=== PATIENT | male | born 1995 | race Caucasian/White ===

== ENCOUNTER 2021-03-14 14:03 | Emergency (ER) | payer OTHER, SELFPAY ==
[2021-03-14 14:35] VITALS: BP 167/88; PULSE 56; RESP 18; TEMP 36.8; O2SAT 100; BMI 33.3
[2021-03-14 16:40] VITALS: PULSE 72; RESP 16; O2SAT 99
--- NOTE | 2021-03-14 16:48 | ED.WOUNDLAC ---
HPI - Wound/Laceration General Chief Complaint: Wound/Laceration Stated Complaint: Hit Head, Laceration Time Seen by Provider: 03/14/21 16:30 Source: patient Mode of arrival: Ambulatory History of Present Illness HPI narrative: 25-year-old otherwise healthy individual who is here for evaluation of a cut above his left eye. He states that he hit himself with the claw portion of a hammer while at work. No other injuries reported from the event. Related Data Home Medications Medication Instructions Recorded Confirmed No Known Home Medications 03/14/21 03/14/21 Allergies Allergy/AdvReac Type Severity Reaction Status Date / Time No Known Drug Allergies Allergy Verified 03/14/21 14:38 Review of Systems Constitutional Comments: No headache Eyes Comments: No vision changes Integumentary/Breasts Comments: Cut above left eye Hematologic/Lymphatic On Anticoagulants: No Patient History Medical History Healthy adult Social History Smoking Status: Never smoker Smoking Status: Never smoker alcohol intake frequency: other Substance Use Type: does not use Exam Initial Vital Signs Initial Vital Signs: Vital Signs Temperature 98.2 F 03/14/21 14:35 Pulse Rate 56 L 03/14/21 14:35 Respiratory Rate 18 03/14/21 14:35 Blood Pressure 167/88 H 03/14/21 14:35 Pulse Oximetry 100 03/14/21 14:35 HENMT Head: laceration (Above left eye) Eyes General: appearance normal, both eyes and all related structures Periorbital: periorbital findings normal Eyelids: eyelids normal Pupils: PERRL Skin Other: 1 cm laceration on the medial aspect of the left eye right at the edge of his eyebrow. No active bleeding. Neuro General: patient alert, patient awake, patient oriented x3 and moves all extremities Extrem General: normal to inspection Psych Appearance: grossly normal Procedures Laceration Repair Laceration 1: Site: face Side (If applicable): left Size (cm): 1 Description: linear Depth: simple, single layer Skin layer closed with: dermabond Course Vital Signs Vital signs: Vital Signs - 8 hr 03/14/21 14:35 03/14/21 16:40 Temperature 98.2 F Pulse Rate 56 L 72 Respiratory Rate 18 16 Blood Pressure 167/88 H Pulse Oximetry 100 99 MDM - Wound/Laceration MDM Narrative Medical decision making narrative: Normal neurologic exam. Wound was closed as described above. No other injuries from the event. Low suspicion for orbital fracture. Patient was given return precautions and follow-up instructions. He expressed understanding agreement. Discharge Plan Departure Patient Disposition: Home Clinical Impression: Laceration Instructions: DI for Minor Laceration Activity Restrictions/Additional Instructions: You can shower like normal. Be careful with drying the area. You can use soap and water like normal. Return to the emergency department for any new or worsening symptoms like we discussed. Prescriptions: No Action No Known Home Medications RF: 0
== END 2021-03-14 16:54 | disposition home or self-care (01) ==
PROVIDERS: Emergency Provider Emergency Medicine
DX: S01.112A Laceration without foreign body of left eyelid and periocular area, initial encounter (principal); W22.8XXA Striking against or struck by other objects, initial encounter
CPT/HCPCS: 12011; 99282; 99283

== ENCOUNTER 2023-02-06 18:43 | Emergency (ER) | payer OTHER, SELFPAY ==
[2023-02-06 18:50] VITALS: BP 159/95; PULSE 87; RESP 16; TEMP 37.2; O2SAT 97; BMI 34.9
--- NOTE | 2023-02-06 19:14 | DI.CT.S_ITS ---
PROCEDURE: CT ABDOMEN PELVIS W CON INDICATIONS: RLQ pain eval for appy TECHNIQUE: After the administration of oral and intravenous contrast, axial sections were acquired from the lung bases to the pubic symphysis. Coronal and sagittal reformats were performed. For radiation dose reduction, the following was used: automated exposure control, adjustment of mA and/or kV according to patient size. COMPARISON:None. FINDINGS: Image quality: Excellent. Lung bases: Lung bases are clear. Heart size is normal. Solid organs: Liver: The liver has no mass or intrahepatic biliary ductal dilatation. The portal vein and hepatic veins are patent. Biliary: The gallbladder has no gallstones, pericholecystic fluid, gallbladder wall thickening, or surrounding inflammatory change. Pancreas: The pancreas has no mass or ductal dilatation. There is no surrounding inflammation. Spleen: Normal size. There are no masses. Adrenals: No hypertrophy or nodules. Kidneys: No obstructive calculus or hydronephrosis. No solid mass. No cystic mass. Peritoneum and bowel: The distal esophagus and stomach are normal. The small bowel has a normal caliber and appearance. The terminal ileum is normal. The large bowel has a normal caliber and appearance. The appendix is normal. No free fluid or air. Nodes and vessels: No retroperitoneal or mesenteric adenopathy by size criteria. Aorta and inferior vena cava are normal in size. Miscellaneous: No abdominal wall mass or hernia. PELVIS: Genitourinary: The bladder has no wall thickening or mass. No bladder calcifications. Bones: No suspicious bony lesions. No vertebral body compression fractures. IMPRESSION: No acute abdominal or pelvic abnormality. Normal appendix. No nephroureterolithiasis. Dictated by: Garry Zambrano M.D. on 02/06/2023 at 20:25 Approved by: Garry Zambrano M.D. on 02/06/2023 at 20:27
[2023-02-06 19:19] LABS: Alanine Aminotransferase 42 IU/L (<50); Albumin 4.9 g/dL (3.5-5.0); Albumin Globulin Ratio 1.3 (1.0-2.8); Alkaline Phosphatase 95 U/L (38-126); Aspartate Aminotransferase 39 IU/L (17-59); BUN Creatinine Ratio 10.7 (6-22); Bilirubin Total 1.6 mg/dL (0.2-1.3); Blood Urea Nitrogen 13 mg/dL (9-20); Calcium 9.3 mg/dL (8.4-10.2); Carbon Dioxide 28 mmol/L (22-32); Chloride 98 mmol/L (98-107); Estimated Glomerular Filt Rate > 60 mL/min (>60); Globulin 3.7 g/dL (1.7-4.1); Glucose 102 mg/dL (70-100); HEMOLYSIS < 15 (0-50); Lipase 48 U/L (23-300); Potassium 4.3 mmol/L (3.4-5.1); Sodium 136 mmol/L (137-145); Total Protein 8.6 g/dL (6.3-8.2)
[2023-02-06 19:24] LABS: Add Manual Diff / Slide Review NO; Basophils Absolute Auto 0 /uL (0-100); Basophils Percent Auto 0.2 % (0-2); Eosinophils Absolute Auto 0 /uL (0-450); Eosinophils Percent Auto 0.2 % (2-4); Hematocrit 45.5 % (41-53); Hemoglobin 16.2 g/dL (13.5-17.5); Lymphocytes Absolute Auto 700 /uL (1100-4500); Lymphocytes Percent Auto 14.4 % (25-40); Mean Corpuscular HGB Conc 35.5 % (30-36); Mean Corpuscular Hemoglobin 30.4 PG (26-34); Mean Corpuscular Volume 85.5 fL (80-100); Monocytes Absolute Auto 300 /uL (0-900); Monocytes Percent Auto 6.1 % (3-14); Neutrophils Absolute Auto 3800 /uL (1500-7000); Neutrophils Percent Auto 79.1 % (50-75); Platelet Count 178 X10^3/uL (150-400); Red Blood Cell Count 5.32 X10^6/uL (4.5-5.9); Red Cell Distribution Width 12.2 % (11.6-14.8); White Blood Cell Count 4.8 X10^3/uL (4.5-11.0)
--- NOTE | 2023-02-06 19:31 | ED.GENADULT ---
HPI - General Adult General Chief complaint: Abdominal Pain Stated complaint: abd pain/rt lower quadrant/sent by andree Time Seen by Provider: 02/06/23 19:14 Source: patient Mode of arrival: Ambulatory Limitations: no limitations History of Present Illness HPI narrative: Patient is a 27-year-old male who was sent to the emergency department for evaluation of potential appendicitis. He states that he has had a day or so of right lower quadrant abdominal pain. Also has a history of diarrhea. The diarrhea has not changed the abdominal pain at all. No vomiting. No fevers. No urinary symptoms. Is also having some nausea. Went to the walk-in clinic sent him to the emergency department for evaluation. Related Data Previous Rx's Medication Instructions Recorded ondansetron 4 mg disintegrating 4 mg PO Q6H PRN nausea and 02/06/23 tablet vomiting #10 tabs Allergies Allergy/AdvReac Type Severity Reaction Status Date / Time No Known Drug Allergies Allergy Verified 03/14/21 14:38 Review of Systems Constitutional Constitutional: Reports system reviewed and no additional complaints, except as documented Cardiovascular Cardiovascular: Reports system reviewed and no additional complaints, except as documented Respiratory Respiratory: Reports system reviewed and no additional complaints, except as documented Gastrointestinal Gastrointestinal: Reports system reviewed and no additional complaints, except as documented Genitourinary Genitourinary: Reports system reviewed and no additional complaints, except as documented Integumentary/Breasts Skin/Breast: Reports system reviewed and no additional complaints, except as documented Patient History Medical History Healthy adult Social History Smoking Status: Never smoker Smoking Status: Never smoker alcohol intake frequency: other Substance Use Type: does not use Exam Initial Vital Signs Initial Vital Signs: Vital Signs Temperature 99.0 F 02/06/23 18:50 Pulse Rate 87 02/06/23 18:50 Respiratory Rate 16 02/06/23 18:50 Blood Pressure 159/95 H 02/06/23 18:50 Pulse Oximetry 97 02/06/23 18:50 Oxygen Delivery Method Room Air 02/06/23 18:50 Resp Effort & Inspection: normal respiratory effort GI Inspection: normal to inspection and non-distended Palpation: soft, No firm, No guarding and tender (Right lower quadrant) Skin General: no rashes or lesions noted Neuro General: patient alert and patient awake Course Orders Ordered: ED Orders 02/06/23 18:57 Complete Blood Count AUTO DIFF Stat Comprehensive Metabolic Panel Stat Lipase Stat 02/06/23 19:14 CT abdomen pelvis w con Stat Discontinued Medications Ondansetron HCl (Ondansetron 4 Mg Odt) 4 mg PO NOW PRN PRN Reason: Nausea And Vomiting Ondansetron HCl (Ondansetron 4 Mg/2 Ml Inj) 4 mg IV NOW PRN PRN Reason: Nausea And Vomiting Ondansetron HCl (Ondansetron 4 Mg/2 Ml Inj) 4 mg IV NOW ONE Stop: 02/06/23 20:35 Last Admin: 02/06/23 20:43 Dose: 4 mg Documented By: GERSON Ondansetron HCl (Ondansetron 4 Mg Odt Prepack) 1 bottle MISC SEEINSTR ONE Stop: 02/06/23 21:27 Last Admin: 02/06/23 21:36 Dose: 1 bottle Documented By: GERSON Vital Signs Vital signs: Vital Signs - 8 hr 02/06/23 18:50 02/06/23 20:47 02/06/23 21:37 Temperature 99.0 F 98.7 F 97.8 F Pulse Rate 87 78 76 Respiratory Rate 16 18 16 Blood Pressure 159/95 H 136/80 128/74 Pulse Oximetry 97 99 Oxygen Delivery Method Room Air Room Air Room Air Medical Decision Making Lab Data Lab results reviewed: Yes I reviewed the patient's lab results. 02/06/23 18:57 02/06/23 18:57 Labs: Lab Results 02/06/23 02/06/23 Range/Units 18:57 18:57 WBC 4.8 (4.5-11.0) X10^3/uL RBC 5.32 (4.5-5.9) X10^6/uL Hgb 16.2 (13.5-17.5) g/dL Hct 45.5 (41-53) % MCV 85.5 (80-100) fL MCH 30.4 (26-34) PG MCHC 35.5 (30-36) % RDW 12.2 (11.6-14.8) % Plt Count 178 (150-400) X10^3/uL Neut % (Auto) 79.1 H (50-75) % Lymph % (Auto) 14.4 L (25-40) % [place] % (Auto) 6.1 (3-14) % Eos % (Auto) 0.2 L (2-4) % Baso % (Auto) 0.2 (0-2) % Neut # (Auto) 3800 (0880-4614) /uL Lymph # (Auto) 700 L (0881-0285) /uL [place] # (Auto) 300 (0-900) /uL Eos # (Auto) 0 (0-450) /uL Baso # (Auto) 0 (0-100) /uL Sodium 136 L (137-145) mmol/L Potassium 4.3 (3.4-5.1) mmol/L Chloride 98 (98-107) mmol/L Carbon Dioxide 28 (22-32) mmol/L BUN 13 (9-20) mg/dL Creatinine 1.22 (0.66-1.25) mg/dL Estimated GFR > 60 (>60) mL/min BUN/Creatinine Ratio 10.7 (6-22) Glucose 102 H (70-100) mg/dL Calcium 9.3 (8.4-10.2) mg/dL Total Bilirubin 1.6 H (0.2-1.3) mg/dL AST 39 (17-59) IU/L ALT 42 (<50) IU/L Alkaline Phosphatase 95 (38-126) U/L Total Protein 8.6 H (6.3-8.2) g/dL Albumin 4.9 (3.5-5.0) g/dL Globulin 3.7 (1.7-4.1) g/dL Albumin/Globulin Ratio 1.3 (1.0-2.8) Lipase 48 (23-300) U/L Urine Dip Bedside Urine Glucose Negative Bedside Urine Bilirubin - Negative Bedside Urine Ketone - Negative Urine Specific [place] 10.15 Bedside Urine pH 6.0 Bedside Urine Protein - Negative Bedside Urine Urobilinogen - Negative Bedside Urine Nitrite - Negative Point of care testing: Urine Dip Bedside Urine Glucose Negative Bedside Urine Bilirubin - Negative Bedside Urine Ketone - Negative Urine Specific [place] 10.15 Bedside Urine pH 6.0 Bedside Urine Protein - Negative Bedside Urine Urobilinogen - Negative Bedside Urine Nitrite - Negative Imaging Data CT scan - abdomen/pelvis: Radiologist's Impression: PROCEDURE:? CT ABDOMEN PELVIS W CON ? INDICATIONS:? RLQ pain eval for appy ? TECHNIQUE:? After the administration of oral and intravenous contrast, axial sections were acquired from the lung bases to the pubic symphysis.? Coronal and sagittal reformats were performed.? For radiation dose reduction, the following was used:? automated exposure control, adjustment of mA and/or kV according to patient size.? ? COMPARISON:None. ? FINDINGS: Image quality:? Excellent.? ? Lung bases:? Lung bases are clear.? Heart size is normal. ? Solid organs:? Liver: The liver has no mass or intrahepatic biliary ductal dilatation. The portal vein and hepatic veins are patent. Biliary: The gallbladder has no gallstones, pericholecystic fluid, gallbladder wall thickening, or surrounding inflammatory change. Pancreas: The pancreas has no mass or ductal dilatation. There is no surrounding inflammation. Spleen: Normal size. There are no masses. Adrenals: No hypertrophy or nodules. Kidneys: No obstructive calculus or hydronephrosis.? No solid mass. No cystic mass. ? Peritoneum and bowel:? The distal esophagus and stomach are normal.? The small bowel has a normal caliber and appearance. The terminal ileum is normal. The large bowel has a normal caliber and appearance.? The appendix is normal. No free fluid or air.? ? Nodes and vessels:? No retroperitoneal or mesenteric adenopathy by size criteria.? Aorta and inferior vena cava are normal in size.? ? Miscellaneous:? No abdominal wall mass or hernia. ? PELVIS:? Genitourinary:? The bladder has no wall thickening or mass. No bladder calcifications. ? Bones:? No suspicious bony lesions.? No vertebral body compression fractures.? ? IMPRESSION:? No acute abdominal or pelvic abnormality.? Normal appendix.? No nephroureterolithiasis.? MDM Narrative Medical decision making narrative: CT scan shows no signs of appendicitis or other intra-abdominal surgical issues. His skin shows no signs of zoster. Vital signs and labs are unremarkable. Urinalysis is unremarkable. Unsure the exact etiology of the patient's symptoms but does not appear to be a surgical issue. There is no indication for surgical consultation. There is no indication for antibiotics. Will have him contact his primary doctor for follow-up. He was given return precautions. He expressed understanding and agreement. Discharge Plan Departure Patient Disposition: Home Clinical Impression: Abdominal pain, Diarrhea Instructions: Diarrhea, DI for Abdominal Pain-Adult Activity Restrictions/Additional Instructions: Use the nausea medication as needed. I recommend a bland diet. 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 Return to the emergency department for new or worsening symptoms. Prescriptions: New ondansetron 4 mg tablet,disintegrating 4 mg PO Q6H PRN (Reason: nausea and vomiting) Qty: 10 0RF Stand Alone Forms: Patient Portal/API
[2023-02-06] MEDS: ONDANSETRON 4 MG/2 ML INJ IV (20:43)
[2023-02-06 20:47] VITALS: BP 136/80; PULSE 78; RESP 18; TEMP 37.1
[2023-02-06] MEDS: ONDANSETRON 4 MG ODT PREPACK 1 BOTTLE MISC (21:36)
[2023-02-06 21:37] VITALS: BP 128/74; PULSE 76; RESP 16; TEMP 36.6; O2SAT 99
== END 2023-02-06 21:38 | disposition home or self-care (01) ==
PROVIDERS: Emergency Provider Emergency Medicine
DX: R10.31 Right lower quadrant pain (principal); R19.7 Diarrhea, unspecified
CPT/HCPCS: 36415; 74177; 80053; 81003; 83690; 85025; 96374; 99284; J2405; Q9967

== ENCOUNTER 2023-08-31 11:22 | Day surgery (SDC) | payer OTHER, SELFPAY ==
[2023-08-31] VITALS (9 sets, daily range): BP systolic 95–140; BP diastolic 57–84; PULSE 52–75; RESP 10–18; TEMP 36.3–36.6; O2SAT 91–99; BMI 32.3
--- NOTE | 2023-08-31 | PATH_ITS ---
[facility] Accession Number: [id number] No. of containers..02 Tissue . 01 Material submitted: . PART A: breast - RIGHT BREAST TISSUE PART B: breast - LEFT BREAST TISSUE . 01 Diagnosis: A. Right Breast Tissue (61 grams), Excision: Benign breast parenchyma with features consistent with gynecomastia. Negative for atypical hyperplasia, in situ, or invasive carincoma. . B. Left Breast Tissue (32 grams), Excision: Benign breast parenchyma with features consistent with gynecomastia. Negative for atypical hyperplasia, in situ, or invasive carincoma. [facility] 09/05/2023 1658 Local . 01 Electronically signed: . Theo Adair MD, PhD, Pathologist NPI- [id number] . 01 Gross description: . A. Received in formalin labeled with the patient's name, , and right breast tissue, consists of multiple fragments of yellow lobulated fibroadipose tissue with no skin grossly identified, a postfixation weight of 61 grams, and aggregating to 8.4 x 7.8 x 2.3 cm. Sectioning reveals yellow to yellow to white fibroadipose tissue with dense white fibrous tissue occupying approximately 50% of the cut surface. No discrete lesions are identified. Spot Sprayer sections are submitted in cassettes A1-A4. B. Received in formalin, labeled with the patient's name, , and left breast tissue, consists of multiple fragments of yellow to white fibroadipose tissue with no skin identified, weighing 32 grams postfixation and aggregating to 7.4 x 7.2 x 1.4 cm. Sectioning reveals yellow to white fibroadipose tissue with dense white fibrous tissue occupying approximately 50% of the cut surface. No discrete lesions are identified. Spot Sprayer sections are submitted in cassettes B1-B4. . Both specimens are removed on 08/31/2023; time not provided; cold ischemic time cannot be calculated, and total fixation time is greater than 72 hours. ([id number]) /MRV 09/04/2023 1356 Local . 01 Pathologist provided ICD-10: N62 . 01 CPT . 372504, 316504 Specimen Comment: A courtesy copy of this report has been sent to [phone] Performed at: 01 [facility] [address] [place] [address], [place], [place] [id number] MD Ludwig Torres MD Phone: [phone]
--- NOTE | 2023-08-31 10:07 | SUR.OPER ---
Supine on padded OR bed, head on pillow, arms secured on padded arm boards at <90 degrees abduction, legs uncrossed, safety belt at thigh, tape over blanket over lower legs.
[2023-08-31] MEDS: LACTATED RINGERS 1,000 ML 42 ML IV (12:02)
[2023-08-31] MEDS: ACETAMINOPHEN 325 MG TABLET 975 MG PO (12:04)
[2023-08-31] MEDS: SCOPOLAMINE 1 PATCH TOP (12:07)
--- NOTE | 2023-08-31 13:02 | PM.PREOP ---
Pre-operative Note Interval Note History & Physical reviewed/Exam performed by Physician: Yes Changes to H&P: No
[2023-08-31] MEDS: CEFAZOLIN 2 GM/100 ML PREMIX 100 ML IV (13:10)
[2023-08-31] MEDS: BUPIVACAINE 0.25% (PF) VIAL 30 ML INJ (13:26)
--- NOTE | 2023-08-31 14:48 | PM.OP.1 ---
Operative Date/Time/Diagnoses Date of procedure: 08/31/23 Time of procedure: 18:34 Pre-op diagnosis: Bilateral gynecomastia Post-op diagnosis: same Procedure & Clinicians Procedure: Bilateral reduction mammaplasty Same procedure as scheduled: Yes Indications: 28-year-old male with bilateral symptomatic gynecomastia Surgeon: Cedric Meeks Click Yes if Unassisted: Yes Anesthesia Type: General Operative Notes Findings: Retro areolar gynecomastia right greater than left Specimen(s): other (Right and left breast tissue) Estimated Blood Loss (mL): 20 Procedure in detail: Patient was brought to the operating room and placed supine on the table. Bilateral lower extremity compression devices were applied. General anesthesia was induced he was intubated with an endotracheal tube. He received 2 g of Ancef. Time-out was performed. He was then prepped and draped in sterile fashion. A curvilinear incision was made and the inferior aspect of the right areola after the application of 1% lidocaine. The gynecomastia was retro areolar and the tissue was grasped and excised using electrocautery. It was removed piecemeal in order to keep the incision minimal. Hemostasis was achieved. We then moved to the left chest which was approached in the same fashion. Curvilinear incision was made on the lateral aspect of the left areola. The gynecomastia on the left side was significantly less than the right. It was grasped and excised in piecemeal fashion using electrocautery. Each wound was carefully explored there was no relevant remaining gynecomastia. Hemostasis was checked. The wounds were then irrigated with saline and then they were closed using Vicryl suture followed by the application of Dermabond. Tolerated the procedure well was extubated and transferred to recovery room in stable condition. Complications: none Post-operative Condition: stable Disposition: same day surgery
== END 2023-08-31 15:44 | disposition home or self-care (01) ==
PROVIDERS: Referring Provider Surgery; Visit Provider Surgery
PROC: (CPT 19301; principal; 2023-08-31 13:00)
DX: N62 Hypertrophy of breast (principal); K21.9 Gastro-esophageal reflux disease without esophagitis; Z80.3 Family history of malignant neoplasm of breast
CPT/HCPCS: 19300; J0690; J1100; J1170; J1885; J2250; J2405; J2704; J3010

== ENCOUNTER 2024-02-29 20:30 | Emergency (ER) | payer OTHER, SELFPAY ==
[2024-02-29 20:47] VITALS: BP 148/57; PULSE 76; RESP 16; TEMP 36.6; O2SAT 100; BMI 33.3
--- NOTE | 2024-02-29 23:30 | ED.WOUNDLAC ---
HPI - Wound/Laceration General Chief Complaint: Wound/Laceration Stated Complaint: tongue lac Time Seen by Provider: 02/29/24 23:11 Source: patient Mode of arrival: Ambulatory History of Present Illness HPI narrative: 28-year-old male presents for evaluation of tongue laceration. He states that he accidentally bit his tongue 4 days ago, but still has an injury. He called the nursing advice line and they recommended he be evaluated in the emergency department. Related Data Home Medications Medication Instructions Recorded Confirmed ibuprofen 800 mg tablet 800 mg PO BID 08/02/23 10/11/23 omeprazole 40 mg capsule,delayed 40 mg PO DAILY 08/31/23 10/11/23 release Previous Rx's Medication Instructions Recorded acetaminophen 325 mg capsule 650 mg (2 x 325 mg) PO QID PRN 08/31/23 (Tylenol) pain #60 caps docusate sodium 100 mg capsule 100 mg PO BID #30 caps 08/31/23 (Colace) sulfamethoxazole 800 1 tab PO Q12H #10 tabs 09/07/23 mg-trimethoprim 160 mg tablet (Bactrim DS) Allergies Allergy/AdvReac Type Severity Reaction Status Date / Time No Known Drug Allergies Allergy Verified 10/11/23 09:13 Patient History Medical History IBS (irritable bowel syndrome) GERD (gastroesophageal reflux disease) Surgical History S/P bilateral foot surgery Family History Mother Hypertension Grandmother Hypertension Breast cancer Grandmother Diabetes mellitus Stroke Brain cancer Skin cancer Aunt Breast cancer Social History marital status: household members: spouse and children lives independently: Yes occupational status: employed Smoking Status: Never smoker alcohol intake: never substance use type: does not use Smoking Status: Never smoker alcohol intake frequency: other Substance Use Type: does not use Exam Initial Vital Signs Initial Vital Signs: Vital Signs Temperature 97.8 F 02/29/24 20:47 Pulse Rate 76 02/29/24 20:47 Respiratory Rate 16 02/29/24 20:47 Blood Pressure 148/57 H 02/29/24 20:47 Pulse Oximetry 100 02/29/24 20:47 Oxygen Delivery Method Room Air 02/29/24 20:47 Const: Awake, alert, no acute distress, nontoxic appearing mouth: mucous membranes moist, 1cm horizontal laceration middle of tongue in stages of healing Neuro: AO x3, CN II-XII grossly intact, moves all extremities Course Vital Signs Vital signs: Vital Signs - 8 hr 02/29/24 20:47 Temperature 97.8 F Pulse Rate 76 Respiratory Rate 16 Blood Pressure 148/57 H Pulse Oximetry 100 Oxygen Delivery Method Room Air MDM - Wound/Laceration MDM Narrative Medical decision making narrative: Tongue laceration, in stages of healing. No indication for laceration repair or suturing at this time. Supportive measures counseled for home Discharge Plan Departure Patient Disposition: Home Clinical Impression: Laceration of tongue Instructions: DI for Minor Laceration Activity Restrictions/Additional Instructions: Wash your mouth out with clean water after eating or drinking Prescriptions: No Action ibuprofen 800 mg tablet 800 mg PO BID sulfamethoxazole-trimethoprim [Bactrim DS] 800-160 mg tablet 1 tab PO Q12H Qty: 10 0RF omeprazole 40 mg capsule,delayed release(DR/EC) 40 mg PO DAILY docusate sodium [Colace] 100 mg capsule 100 mg PO BID Qty: 30 0RF acetaminophen [Tylenol] 325 mg capsule 650 mg PO QID PRN (Reason: pain) Qty: 60 0RF Referrals: Waleska Deleon DO [Primary Care Provider] - Stand Alone Forms: Patient Portal/API
[2024-02-29 23:49] VITALS: BP 130/72; PULSE 57; RESP 16; TEMP 36.3; O2SAT 98
== END 2024-02-29 23:52 | disposition home or self-care (01) ==
PROVIDERS: Emergency Provider Emergency Medicine
DX: S01.512A Laceration without foreign body of oral cavity, initial encounter (principal); X58.XXXA Exposure to other specified factors, initial encounter
CPT/HCPCS: 99282